=== PATIENT | female | born 1955 | race Caucasian/White ===

== ENCOUNTER 2016-09-04 13:02 | Emergency (ER) | payer MEDICARE, OTHER ==
[2016-09-04 14:50] LABS: BASOPHIL 0.3 % (0-2); HCT 39.2 % (37.0-47.0); HGB 13.3 g/dl (12.5-16.0); LYMPHOCYTE 8.1 % (15-48); MCH 30.5 pg (25.0-31.0); MCHC 33.9 g/dL (32.0-36.0); MCV 89.9 fL (78.0-100.0); MONOCYTE 6.9 % (0-12); MPV 9.6 fL (6.0-9.5); NEUTROPHIL 83.7 % (41-80); PLT 265 K/uL (150-400); RBC 4.36 M/uL (4.20-5.40); RDW 13.3 % (11.5-14.0); WBC 9.4 K/uL (4.0-10.5)
[2016-09-04 15:10] LABS: CREATININE 1.3 mg/dL (0.5-1.0); POTASSIUM 3.5 mmol/L (3.5-5.1)
[2016-09-04 15:16] LABS: BILIRUBIN NEGATIVE (NEGATIVE); BLOOD 2+ Ery/uL (NEGATIVE); CLARITY HAZY (CLEAR); COLOR YELLOW (YELLOW); GLUCOSE (U) NORMAL (NORMAL); KETONE (U) NEGATIVE (NEGATIVE); LEUKOCYTES NEGATIVE Leu/uL (NEGATIVE); NITRITE NEGATIVE (NEGATIVE); PROTEIN 2+ mg/dL (NEGATIVE); UROBILINOGEN 0.2 mg/dL (0.2-1.0)
[2016-09-04 15:17] LABS: URINARY WBC RARE
== END 2016-09-04 16:00 | disposition home or self-care (01) ==
LOC: FER 13:02
PROVIDERS: Nurse Practitioner Family
DX: J06.9 Acute upper respiratory infection, unspecified (principal); I11.0 Hypertensive heart disease with heart failure; I50.9 Heart failure, unspecified; J45.909 Unspecified asthma, uncomplicated; G89.29 Other chronic pain; F17.210 Nicotine dependence, cigarettes, uncomplicated; Z88.5 Allergy status to narcotic agent; Z88.6 Allergy status to analgesic agent
CPT/HCPCS: 36415; 71010; 80048; 81001; 85025; 94640; J2930